=== PATIENT | male | born 2000 | race Hispanic/Latino ===

== ENCOUNTER 2022-01-14 22:32 | Emergency (ER) | payer SELFPAY ==
[2022-01-14 22:43] VITALS: BP 154/69
--- NOTE | 2022-01-15 02:23 | Emergency Department Report ---
ED Anxiety HPI - General Chief Complaint: Anxiety Stated Complaint: CHEST & ARM DISCOMFORT Source: patient Mode of arrival: Ambulatory - History of Present Illness Initial Comments: Patient is a 21-year-old male with a history of panic attack and anxiety who presents to the ED with acute extubation of his chronic panic attacks and anxiety characterized by anterior chest wall pain, persistent elevated heart rate, tingling sensation in the chest wall, in the upper extremities and left wrist pain for the last 1 week. Patient states that he initially started having the symptoms after he ate "an edible" which was given to him by some of his friends. Patient states that he was immediately taken to another hospital where he was extensively worked up about a week ago and was discharged. Patient states that since then he has continued to have intermittent chest pain and left wrist pain. Patient denies dizziness, syncope, fever, chills, nausea and vomiting, cough, sore throat, headache, lightheadedness or abdominal pain. MD Complaint: anxiety, heart racing, shortness of breath, other (Tingling sensation of the chest wall; left wrist pain) -: Sudden, week(s) (1) Symptoms: dyspnea, chest pain, extremity numbness Place: home Previous History of Same: Yes (1 week ago) Severity: moderate Quality: intermittant Provoking factors: other (Illicit drug use) Improves With: rest Worsens With: nothing Associated symptoms: chest pain, shortness of breath. denies: palpitations, diaphoresis, denies other symptoms, confusion, cough, fever/chills, headaches, anorexia, malaise, nausea/vomiting, rash, syncope, weakness, other - Related Data Home Medications: Previous Rx's Medication Instructions Recorded Last Taken Type Naproxen 500 mg PO Q12H PRN #20 tab 01/15/22 Unknown Rx Allergies/Adverse Reactions: Allergies Allergy/AdvReac Type Severity Reaction Status Date / Time No Known Allergies Allergy Unverified 01/14/22 22:38 ED Review of Systems ROS: Stated complaint: CHEST & ARM DISCOMFORT Other details as noted in HPI Constitutional: denies: chills, fever Eyes: denies: eye pain, eye discharge, vision change ENT: denies: ear pain, throat pain Respiratory: denies: cough, shortness of breath, wheezing Cardiovascular: chest pain (Mild intermittent chest pain), palpitations. denies: dyspnea on exertion, orthopnea, edema, syncope Endocrine: no symptoms reported Gastrointestinal: denies: abdominal pain, nausea, vomiting, diarrhea Genitourinary: denies: urgency, dysuria Musculoskeletal: arthralgia (Left wrist pain). denies: back pain, joint swelling Skin: denies: rash, lesions Neurological: denies: headache, weakness, paresthesias Psychiatric: anxiety. denies: depression, auditory hallucinations, visual hallucinations, suicidal thoughts Hematological/Lymphatic: denies: easy bleeding, easy bruising ED Past Medical Hx - Past Medical History Previous Medical History?: Yes Hx Psychiatric Treatment: Yes (Anxiety, panic attacks) Additional medical history: anxiety - Surgical History Past Surgical History?: No - Medications Home Medications: Home Medications Medication Instructions Recorded Confirmed Last Taken Type Naproxen 500 mg PO Q12H PRN #20 tab 01/15/22 Unknown Rx ED Physical Exam - General Limitations: No Limitations General appearance: alert, in no apparent distress, anxious - Head Head exam: Present: atraumatic, normocephalic, normal inspection - Eye Eye exam: Present: normal appearance, PERRL, EOMI Pupils: Present: normal accommodation - ENT ENT exam: Present: normal exam, normal orophraynx, mucous membranes moist, TM's normal bilaterally, normal external ear exam - Neck Neck exam: Present: normal inspection, full ROM. Absent: tenderness - Respiratory Respiratory exam: Present: normal lung sounds bilaterally, chest wall tenderness (Palpable reproducible anterior chest wall tenderness). Absent: respiratory distress, wheezes, rales, rhonchi, stridor, accessory muscle use, decreased breath sounds, prolonged expiratory - Cardiovascular Cardiovascular Exam: Present: regular rate, normal rhythm, normal heart sounds. Absent: systolic murmur, diastolic murmur, rubs, gallop - GI/Abdominal GI/Abdominal exam: Present: soft, normal bowel sounds. Absent: tenderness, guarding, rebound, hyperactive bowel sounds, hypoactive bowel sounds, organomegaly, bruit - Extremities Exam Extremities exam: Present: normal inspection, full ROM, tenderness (Palpable mild left wrist tenderness), normal capillary refill. Absent: pedal edema, joint swelling, calf tenderness - Back Exam Back exam: Present: normal inspection, full ROM. Absent: tenderness, CVA tenderness (R), CVA tenderness (L), muscle spasm, paraspinal tenderness, vertebral tenderness - Neurological Exam Neurological exam: Present: alert, oriented X3, CN II-XII intact, normal gait, reflexes normal - Psychiatric Psychiatric exam: Present: normal affect, normal mood, anxious - Skin Skin exam: Present: warm, dry, intact, normal color. Absent: rash ED Course Vital Signs 01/14/22 22:38 Temperature 99.9 F H Pulse Rate 96 H Respiratory 18 Rate Blood Pressure 154/69 O2 Sat by Pulse 98 Oximetry ED Medical Decision Making - Medical Decision Making This is a 21-year-old male with a history of panic attack and anxiety who presents to the ED with acute extubation of his chronic panic attacks and anxiety characterized by anterior chest wall pain, persistent elevated heart rate, tingling sensation in the chest wall, in the upper extremities and left wrist pain for the last 1 week. Patient states that he initially started having the symptoms after he ate "an edible" which was given to him by some of his friends. Patient states that he was immediately taken to another hospital where he was extensively worked up about a week ago and was discharged. Patient states that since then he has continued to have intermittent chest pain and left wrist pain. In the ED, patient is alert and oriented x3 and is not in any distress. Patient however is anxious during the physical exam. Patient discharged home on medications for pain and advised to follow-up with his primary care physician since his symptoms are likely musculoskeletal. Patient's heart score is 0 and patient is hemodynamically stable. Patient is advised to follow-up with his primary care physician in 7 to 10 days for reevaluation or return to the ED immediately if symptoms get worse. - Differential Diagnosis Anxiety; tendinitis; muscle strain; panic attack Critical care attestation.: If time is entered above; I have spent that time in minutes in the direct care of this critically ill patient, excluding procedure time. ED Disposition Clinical Impression: Panic attack due to exceptional stress, Anxiety as acute reaction to exceptional stress, Muscle strain of anterior chest wall, Left wrist tendonitis Disposition: HOME / SELF CARE / HOMELESS Is pt being admited?: No Does the pt Need Aspirin: No Condition: Stable Instructions: Muscle Strain, [id number], Generalized Anxiety Disorder, Adult, Tendinitis, [id number], Panic Attack, [id number] Additional Instructions: Your symptoms are likely due to panic attacks, anxiety and muscle strain as a result of anxiety. Therefore take medication as advised, drink plenty of fluids and follow-up with your primary care physician in 5 to 7 days for reevaluation. Return to the ED immediately if symptoms get worse. Prescriptions: Naproxen 500 mg PO Q12H PRN #20 tab PRN Reason: Pain , Severe (7-10) Referrals: [facility] [Provider Group] - 3-5 Days Time of Disposition: 02:24 Print Language: ROMANSH
== END 2022-01-15 02:54 | disposition home or self-care (01) ==
LOC: ED 22:32
DX: S29.011A Strain of muscle and tendon of front wall of thorax, initial encounter (principal); R41.0 Disorientation, unspecified; F43.0 Acute stress reaction; M67.833 Other specified disorders of tendon, right wrist; X58.XXXA Exposure to other specified factors, initial encounter; Y93.89 Activity, other specified; Y92.89 Other specified places as the place of occurrence of the external cause; Y99.8 Other external cause status
CPT/HCPCS: 99282

== ENCOUNTER 2022-02-06 08:55 | Emergency (ER) | payer SELFPAY ==
--- NOTE | 2022-02-06 10:39 | Emergency Department Report ---
ED Anxiety HPI - General Chief Complaint: Anxiety Stated Complaint: CHEST TIGHTNESS/ABD/BACK PAIN Time Seen by Provider: 02/06/22 10:37 Source: patient Mode of arrival: Ambulatory - History of Present Illness Initial Comments: Mr. Leong is a 21-year-old male that comes to the emergency room with a history of palpitations, that occurred 3 days ago. He states he wanted to make sure he did not have an aneurysm. Patient is recently treated for anxiety. He is not taking his medications as prescribed. No HI. No SI. Patient is cooperative. Denies anxiety on exam. Mood and affect appropriate. MD Complaint: anxiety, heart racing -: Gradual, days(s) Symptoms: palpitations Place: home Previous History of Same: Yes Provoking factors: none known Improves With: nothing Worsens With: nothing - Related Data Home Medications: Previous Rx's Medication Instructions Recorded Last Taken Type Naproxen 500 mg PO Q12H PRN #20 tab 01/15/22 Unknown Rx Allergies/Adverse Reactions: Allergies Allergy/AdvReac Type Severity Reaction Status Date / Time No Known Allergies Allergy Unverified 01/14/22 22:38 ED Review of Systems ROS: Stated complaint: CHEST TIGHTNESS/ABD/BACK PAIN Other details as noted in HPI Comment: All other systems reviewed and negative ED Past Medical Hx - Past Medical History Previous Medical History?: Yes Hx Psychiatric Treatment: Yes (Anxiety, panic attacks) Additional medical history: anxiety - Surgical History Past Surgical History?: No - Family History Family history: no significant - Social History Smoking Status: Never Smoker Substance Use Type: None - Medications Home Medications: Home Medications Medication Instructions Recorded Confirmed Last Taken Type Naproxen 500 mg PO Q12H PRN #20 tab 01/15/22 Unknown Rx ED Physical Exam - General Limitations: No Limitations General appearance: alert, in no apparent distress - Head Head exam: Present: atraumatic, normocephalic - Eye Eye exam: Present: normal appearance - ENT ENT exam: Present: mucous membranes moist - Neck Neck exam: Present: normal inspection - Respiratory Respiratory exam: Present: normal lung sounds bilaterally. Absent: respiratory distress - Cardiovascular Cardiovascular Exam: Present: regular rate, normal rhythm. Absent: systolic murmur, diastolic murmur, rubs, gallop - GI/Abdominal GI/Abdominal exam: Present: soft, normal bowel sounds - Rectal Rectal exam: Present: deferred - Extremities Exam Extremities exam: Present: normal inspection - Back Exam Back exam: Present: normal inspection - Neurological Exam Neurological exam: Present: alert, oriented X3 - Psychiatric Psychiatric exam: Present: normal affect, normal mood - Skin Skin exam: Present: warm, dry, intact, normal color. Absent: rash ED Course Vital Signs 02/06/22 10:29 Temperature 98.2 F Pulse Rate 89 Respiratory 16 Rate Blood Pressure 149/96 O2 Sat by Pulse 99 Oximetry ED Medical Decision Making - Medical Decision Making Vital Signs 02/06/22 10:29 Temperature 98.2 F Pulse Rate 89 Respiratory 16 Rate Blood Pressure 149/96 O2 Sat by Pulse 99 Oximetry Patient reassured. Patient educated on his anxiety patient educated on anxiety patient educated on anxiety its management and preventing it. We discussed him taking his medications as prescribed. No HI. No SI. Patient ambulatory, not ill nontoxic on exam. Patient verbalizes understanding of discharge plan of care including diet, activity, medications and follow-up. Patient being discharged home. - Differential Diagnosis Acute on chronic anxiety Critical care attestation.: If time is entered above; I have spent that time in minutes in the direct care of this critically ill patient, excluding procedure time. ED Disposition Clinical Impression: Anxiety Disposition: 01 HOME / SELF CARE / HOMELESS Is pt being admited?: No Does the pt Need Aspirin: No Condition: Stable Instructions: Managing Anxiety, Adult Additional Instructions: Follow-up with primary care. Have given you referral below. Minimize caffeine avoid drugs and alcohol Exercise daily Take your medications as prescribed Referrals: DOYLE YATES MD [Staff Physician] - 3-5 Days Time of Disposition: 10:38
[2022-02-06 12:07] VITALS: BP 150/79
== END 2022-02-06 12:07 | disposition home or self-care (01) ==
LOC: ED 08:55
DX: F41.9 Anxiety disorder, unspecified (principal)
CPT/HCPCS: 99282

== ENCOUNTER 2022-02-21 12:48 | Emergency (ER) | payer SELFPAY ==
[2022-02-21 13:08] VITALS: BP 139/82
[2022-02-21 13:46] LABS: Basophils % (Auto) 0.5 % (0.0-1.8); Eosinophils # (Auto) 0.1 K/mm3 (0.0-0.4); Eosinophils % (Auto) 1.5 % (0.0-4.3); Hematocrit 45.6 % (35.5-45.6); Hemoglobin 15.2 gm/dl (11.8-15.2); Lymphocytes # (Auto) 1.3 K/mm3 (1.2-5.4); Mean Corpuscular HGB Conc 33 % (32-34); Mean Corpuscular Volume 92 fl (84-94); Monocytes # (Auto) 0.3 K/mm3 (0.0-0.8); Monocytes % (Auto) 6.4 % (0.0-7.3); Platelet Count 259 K/mm3 (140-440); Red Blood Count 4.96 M/mm3 (3.65-5.03); Red Cell Distribution Width 13.1 % (13.2-15.2)
[2022-02-21 14:08] LABS: BUN/Creatinine Ratio 12; Blood Urea Nitrogen 11 mg/dL (9-20); Calcium 10.1 mg/dL (8.4-10.2); Hemolysis Index 19
--- NOTE | 2022-02-21 15:13 | Emergency Department Report ---
ED General Adult HPI - General Chief complaint: Abdominal Pain Stated complaint: ABD PAIN PUI?: No Time Seen by Provider: 02/21/22 15:10 Source: patient Mode of arrival: Ambulatory Limitations: No Limitations - History of Present Illness Initial comments: Patient is a 21-year-old male that comes to the emergency room with abdominal pain. He describes it as an intermittent choking sensation in his epigastric area. I have seen the patient before and he has been having anxiety. He does not follow-up. He denies chest pain or shortness of breath. He denies drug or alcohol. He denies fever or chills. Patient ambulatory, not ill nontoxic on arrival. -: Gradual, month(s) Worsens with: none Associated Symptoms: denies other symptoms Treatments Prior to Arrival: none - Related Data Previous Rx's Medication Instructions Recorded Last Taken Type Naproxen 500 mg PO Q12H PRN #20 tab 01/15/22 Unknown Rx Allergies Allergy/AdvReac Type Severity Reaction Status Date / Time No Known Allergies Allergy Verified 02/21/22 13:08 ED Review of Systems ROS: Stated complaint: ABD PAIN Other details as noted in HPI Comment: All other systems reviewed and negative ED Past Medical Hx - Past Medical History Previous Medical History?: Yes Hx Psychiatric Treatment: Yes (Anxiety, panic attacks) Additional medical history: anxiety - Surgical History Past Surgical History?: No - Family History Family history: no significant - Social History Smoking Status: Never Smoker Substance Use Type: None - Medications Home Medications: Home Medications Medication Instructions Recorded Confirmed Last Taken Type Naproxen 500 mg PO Q12H PRN #20 tab 01/15/22 Unknown Rx ED Physical Exam - General Limitations: No Limitations General appearance: alert, in no apparent distress - Head Head exam: Present: atraumatic, normocephalic - Eye Eye exam: Present: normal appearance - ENT ENT exam: Present: mucous membranes moist - Neck Neck exam: Present: normal inspection - Respiratory Respiratory exam: Present: normal lung sounds bilaterally. Absent: respiratory distress - Cardiovascular Cardiovascular Exam: Present: regular rate, normal rhythm. Absent: systolic murmur, diastolic murmur, rubs, gallop - GI/Abdominal GI/Abdominal exam: Present: soft, normal bowel sounds - Rectal Rectal exam: Present: deferred - Extremities Exam Extremities exam: Present: normal inspection - Back Exam Back exam: Present: normal inspection - Neurological Exam Neurological exam: Present: alert, oriented X3 - Psychiatric Psychiatric exam: Present: normal affect, normal mood - Skin Skin exam: Present: warm, dry, intact, normal color. Absent: rash ED Course Vital Signs 02/21/22 13:06 Temperature 97.1 F L Pulse Rate 99 H Respiratory 16 Rate Blood Pressure 139/82 [Left] O2 Sat by Pulse 100 Oximetry ED Medical Decision Making - Lab Data Result diagrams: 02/21/22 13:25 02/21/22 13:25 - Medical Decision Making Vital Signs 02/21/22 13:06 Temperature 97.1 F L Pulse Rate 99 H Respiratory 16 Rate Blood Pressure 139/82 [Left] O2 Sat by Pulse 100 Oximetry Lab Results 02/21/22 02/21/22 Range/Units 13:25 13:25 WBC 4.0 L (4.5-11.0) K/mm3 RBC 4.96 (3.65-5.03) M/mm3 Hgb 15.2 (11.8-15.2) gm/dl Hct 45.6 (35.5-45.6) % MCV 92 (84-94) fl MCH 31 (28-32) pg MCHC 33 (32-34) % RDW 13.1 L (13.2-15.2) % Plt Count 259 (140-440) K/mm3 Lymph % (Auto) 33.0 (13.4-35.0) % [place] % (Auto) 6.4 (0.0-7.3) % Eos % (Auto) 1.5 (0.0-4.3) % Baso % (Auto) 0.5 (0.0-1.8) % Lymph # (Auto) 1.3 (1.2-5.4) K/mm3 [place] # (Auto) 0.3 (0.0-0.8) K/mm3 Eos # (Auto) 0.1 (0.0-0.4) K/mm3 Baso # (Auto) 0.0 (0.0-0.1) K/mm3 Seg Neutrophils % 58.6 (40.0-70.0) % Seg Neutrophils # 2.3 (1.8-7.7) K/mm3 Sodium 138 (137-145) mmol/L Potassium 4.1 (3.6-5.0) mmol/L Chloride 102.4 (98-107) mmol/L Carbon Dioxide 22 (22-30) mmol/L Anion Gap 18 mmol/L BUN 11 (9-20) mg/dL Creatinine 0.9 (0.8-1.3) mg/dL Estimated GFR > 60 ml/min BUN/Creatinine Ratio 12 % Glucose 127 H (75-100) mg/dL Calcium 10.1 (8.4-10.2) mg/dL Lipase 16 (13-60) units/L Labs noted. Patient reassured that there is nothing medically wrong with him. He has it in his head that is physically ill. I explained to him that he needs to follow-up with a primary care to manage his anxiety. He was given Vistaril in the ER with some relief. Patient has been educated on anxiety management. DC home with discharge plan of care including diet, activity, medications and follow-up. Patient verbalizes understanding of plan of care - Differential Diagnosis ANXIETY Critical care attestation.: If time is entered above; I have spent that time in minutes in the direct care of this critically ill patient, excluding procedure time. ED Disposition Clinical Impression: Anxiety Disposition: 01 HOME / SELF CARE / HOMELESS Is pt being admited?: No Does the pt Need Aspirin: No Condition: Stable Instructions: Managing Anxiety, Teen Additional Instructions: Avoid caffeine and other stimulants. Avoid alcohol and drugs. Avoid marijuana. Exercise daily Limit caffeine in your diet Work on stress reduction Follow-up with PCP. Have given you referral below. Diet activity as tolerated Referrals: DOYLE YATES MD [Primary Care Provider] - 3-5 Days Time of Disposition: 15:24
[2022-02-21] MEDS ORDERED: hydrOXYzine PAMOATE 25 MG CAP PO ONE (15:25)
[2022-02-21 15:35] LABS: Bilirubin,Urine NEG (Negative); Blood,Urine NEG (Negative); Color,Urine Straw (Yellow); Protein,Urine <15 mg/dL mg/dL (Negative); RBC,Urine < 1.0 /HPF (0.0-6.0); Urobilinogen,Urine < 2.0 mg/dL (<2.0)
[2022-02-21 16:08] LABS: WBC,Urine < 1.0 /HPF (0.0-6.0)
== END 2022-02-21 18:35 | disposition home or self-care (01) ==
LOC: ED 12:48
DX: F41.9 Anxiety disorder, unspecified (principal); R10.13 Epigastric pain; Z98.890 Other specified postprocedural states; Z79.899 Other long term (current) drug therapy
CPT/HCPCS: 36415; 80048; 81001; 83690; 85025; 99283